=== PATIENT | male | born 1960 | race Caucasian/White ===

== ENCOUNTER 2025-02-15 06:56 | Day surgery (SDC) | payer MEDICARE ==
[2025-02-15] MEDS ORDERED: Midazolam 1 MG/ML 2 ML SDV ONE (07:14)
[2025-02-15] MEDS ORDERED: Propofol 200 MG/20 ML SDV ONE (07:14)
[2025-02-15] MEDS ORDERED: fentaNYL 50 MCG/ML SDV ONE (07:14)
[2025-02-15] MEDS: Lactated Ringers 1,000 ML IV SCH (07:17)
== END 2025-02-15 09:30 | disposition home or self-care (01) ==
LOC: JP.SDS 06:56
PROVIDERS: ATTEND Surgery
DX: Z12.11 Encounter for screening for malignant neoplasm of colon (principal); K57.30 Diverticulosis of large intestine without perforation or abscess without bleeding; Z85.038 Personal history of other malignant neoplasm of large intestine
CPT/HCPCS: G0105; J2250; J2704; J3010; J7120